=== PATIENT | female | born 1965 | race Caucasian/White ===

== ENCOUNTER 2017-07-03 18:29 | Emergency (ER) | payer OTHER ==
[~2017-07-03] VITALS: Ht 170.2 cm; Wt 79.4 kg
--- OUTSIDE RECORDS SUMMARY | 2017-07-03 18:36 | XMS REPORT ---
Author Author DALE YBARRA Organization [employer] Address Unknown Phone Unavailable Care Team Providers Care Transport Tank Technician Name Role Phone DALE YBARRA CP Unavailable Allergies No Known Allergies Problems Problem Type Condition Code Onset Dates Condition Status Problem Need for prophylactic vaccination and inoculation, Influenza V04.81 Active Problem Essential hypertension, benign 401.1 Active Problem Screening for lipoid disorders V77.91 Active Problem Pain in soft tissues of limb 729.5 Active Problem Other nonspecific abnormal serum enzyme levels 790.5 Active Problem DTAP TEST V06.1 Active Problem Encounter for dental examination and cleaning without abnormal findings Z01.20 Active Problem Other malaise and fatigue 780.79 Active Problem Unspecified vitamin D deficiency 268.9 Active Problem Screening examination for pulmonary tuberculosis V74.1 Active Problem Family history of stroke (cerebrovascular) V17.1 Active Medications Medication Code System Code Instructions Start Date End Date Status Dosage PredniSONE [facility] [address]-79 20 mg Orally Once a day January 13, 2016 January 18, 2016 2 tablets Results No Known Results Summary Purpose eClinicalWorks Submission
--- OUTSIDE RECORDS SUMMARY | 2017-07-03 18:36 | XMS REPORT ---
Author Author MARIA L ALCANTAR [facility] e[employer] Address Unknown Phone Unavailable Care Team Providers Care Manager Of Hospital Name Role Phone MARIA L ALCANTAR CP Unavailable Allergies, Adverse Reactions, Alerts Substance Reaction Event Type N.K.D.A. Info Not Available Non Drug Allergy Problems Problem Type Condition Code Onset Dates Condition Status Problem Screening for lipoid disorders V77.91 Active Problem Unspecified vitamin D deficiency 268.9 Active Problem Essential hypertension, benign 401.1 Active Problem Encounter for dental examination and cleaning without abnormal findings Z01.20 Active Problem Other nonspecific abnormal serum enzyme levels 790.5 Active Problem Encounter for dental examination Z01.20 Active Problem Family history of stroke (cerebrovascular) V17.1 Active Problem Other malaise and fatigue 780.79 Active Problem DTAP TEST V06.1 Active Problem Screening examination for pulmonary tuberculosis V74.1 Active Assessment Encounter for dental examination Z01.20 Active Problem Pain in soft tissues of limb 729.5 Active Problem Need for prophylactic vaccination and inoculation, Influenza V04.81 Active Medications No Known Medications Procedures Procedure Coding System Code Date TOPICAL FLUORIDE VARNISH CPT-4 D1206 Jul 21, 2016 PROPHYLAXIS - ADULT CPT-4 D1110 Jul 21, 2016 Vital Signs Date/Time: Jul 21, 2016 Blood Pressure Diastolic 94 mmHg Blood Pressure Systolic 141 mmHg Results No Known Results Summary Purpose eClinicalWorks Submission
--- OUTSIDE RECORDS SUMMARY | 2017-07-03 18:36 | XMS REPORT ---
Author Author MALLY JOSHI Organization [employer] Address Unknown Phone Unavailable Care Team Providers Care Supervising Floorperson Name Role Phone MALLY JOSHI CP Unavailable Allergies No Known Allergies Problems Problem Type Condition Code Onset Dates Condition Status Problem Need for prophylactic vaccination and inoculation, Influenza V04.81 Active Problem Essential hypertension, benign 401.1 Active Problem Screening for lipoid disorders V77.91 Active Assessment Encounter for dental examination and cleaning without abnormal findings Z01.20 Active Problem Pain in soft tissues [...] history of stroke (cerebrovascular) V17.1 Active Medications No Known Medications Procedures Procedure Coding System Code Date INTRAORL-PERIAPICAL EA ADD FILM CPT-4 D0230 Sep 02, 2015 INTRAORL-PERIAPICAL EA ADD FILM CPT-4 D0230 Sep 02, 2015 INTRAORL-PERIAPICAL 1 FILM 76290 CPT-4 D0220 Sep 02, 2015 PROPHYLAXIS - ADULT CPT-4 D1110 Sep 02, 2015 BITEWINGS - FOUR FILMS CPT-4 D0274 Sep 02, 2015 Results No Known Results Summary Purpose eClinicalWorks Submission
--- OUTSIDE RECORDS SUMMARY | 2017-07-03 18:36 | XMS REPORT ---
Author Author MAURICIO FLEMING [facility] e[employer] Address Unknown Phone Unavailable Care Team Providers Care Crime Scene Photographer Name Role Phone MAURICIO FLEMING CP Unavailable Allergies No Known Allergies Problems Problem Type Condition Code Onset Dates Condition Status Problem Pain in soft tissues of limb 729.5 Active Problem Screening for lipoid disorders V77.91 Active Problem Need for prophylactic vaccination and inoculation, Influenza V04.81 Active Problem DTAP TEST V06.1 Active Problem Screening examination for pulmonary tuberculosis V74.1 Active Problem Other nonspecific abnormal serum enzyme levels 790.5 Active Problem Unspecified vitamin D deficiency 268.9 Active Problem Essential hypertension, benign 401.1 Active Problem Family history of stroke (cerebrovascular) V17.1 Active Problem Other malaise and fatigue 780.79 Active Medications No Known Medications Results No Known Results Summary Purpose eClinicalWorks Submission
--- OUTSIDE RECORDS SUMMARY | 2017-07-03 18:36 | XMS REPORT ---
Author OTF Woodruff [facility] e[employer] Address Unknown Phone Unavailable Care Team Providers Care Conduit Cleaner Name Role Phone OTF PINA CP Unavailable Allergies No Known Allergies Problems Problem Type Condition Code Onset Dates Condition Status Problem Pain in soft tissues of limb 729.5 Active Problem Screening for lipoid disorders V77.91 Active Problem Need for prophylactic vaccination and inoculation, Influenza V04.81 Active Assessment Encounter for immunization Z23 Active Problem DTAP TEST V06.1 Active Problem Screening examination for pulmonary tuberculosis V74.1 Active Problem Other nonspecific abnormal serum enzyme levels 790.5 Active Problem Unspecified vitamin D deficiency 268.9 Active Problem Essential hypertension, benign 401.1 Active Problem Family history of stroke (cerebrovascular) V17.1 Active Problem Other malaise and fatigue 780.79 Active Medications No Known Medications Procedures Procedure Coding System Code Date SINGLE IMMUNIZATION ADMIN CPT-4 76836 Aug 03, 2015 FLUARIX QUAD (3 & UP)-GSK-2014 CPT-4 09392 Aug 03, 2015 Results No Known Results Immunizations Vaccine Administration Date FLUARIX QUAD (3 & UP)-GSK-2014Aug 03, 2015 Summary Purpose eClinicalWorks Submission
--- OUTSIDE RECORDS SUMMARY | 2017-07-03 18:36 | XMS REPORT ---
Author DALE Sales Organization [employer] Address Unknown Phone Unavailable Care Team Providers Care Route Salesman Name Role Phone DALE YBARRA CP Unavailable Allergies, Adverse Reactions, Alerts Substance Reaction Event Type N.K.D.A. Info Not Available Non Drug Allergy Problems Problem Type Condition Code Onset Dates Condition Status Problem Need for prophylactic vaccination and inoculation, Influenza V04.81 Active Problem Essential hypertension, benign 401.1 Active Problem Screening for lipoid disorders V77.91 Active Assessment Poison luz marina L23.7 Active Problem Pain in soft tissues of [...] Instructions Start Date End Date Status Dosage Triamcinolone Acetonide [facility] [id number] 0.1 % Externally Twice a day January 12, 2016 1 application to affected area Procedures Procedure Coding System Code Date KENALOG 40 MG/ML (PER 10 MG) CPT-4 J3301 January 12, 2016 THER/PROPH/DIAG INJ, SC/IM CPT-4 99139 January 12, 2016 Office Visit, Est Pt., Level 3 CPT-4 45193 January 12, 2016 Vital Signs Date/Time: January 12, 2016 Temperature 97.5 F Weight 179.0 lbs Height 66 in BMI 28.89 Index Blood Pressure Diastolic 82 mmHg Blood Pressure Systolic 150 mmHg Cardiac Monitoring Heart Rate 68 bpm Results No Known Results Summary Purpose eClinicalWorks Submission
--- OUTSIDE RECORDS SUMMARY | 2017-07-03 18:36 | XMS REPORT ---
Author Author DALE YBARRA Organization [facility] Address [address] [place] [address] Care Team Providers Care Head Of Marketing Analytics Name Role Phone DALE YBARRA Unavailable PROBLEMS Type Condition ICD9-CM Code WIF70-TE Code Onset Dates Condition Status SNOMED Code Problem Screening for lipoid disorders V77.91 Active 001620216 Problem Unspecified vitamin D deficiency 268.9 Active 42733683 Problem Essential hypertension, benign 401.1 Active 7175693 Assessment Nailbed contusion, finger, initial encounter S60.10XA Jun, Active 79606486 Problem Pain in soft tissues of limb 729.5 Active 68349454 Problem Need for prophylactic vaccination and inoculation, Influenza V04.81 Active 939890449 Problem Encounter for dental examination and cleaning without abnormal findings Z01.20 Active 169740193 Problem Other nonspecific abnormal serum enzyme levels 790.5 Active 198824866 Problem Family history of stroke (cerebrovascular) V17.1 Active 762459317 Problem Other malaise and fatigue 780.79 Active 362703346 Problem DTAP TEST V06.1 Active Problem Screening examination for pulmonary tuberculosis V74.1 Active 693644307 ALLERGIES Substance Reaction Event Type Date Status N.K.D.A. Unknown Non Drug Allergy Jun, Unknown SOCIAL HISTORY No smoking Hx information available PLAN OF CARE VITAL SIGNS Height 66 in 2016-06-10 Weight 178.4 lbs 2016-06-10 Heart Rate 100 bpm 2016-06-10 Respiratory Rate 18 2016-06-10 BMI 28.79 kg/m2 2016-06-10 Blood pressure systolic 120 mmHg 2016-06-10 Blood pressure diastolic 88 mmHg 2016-06-10 MEDICATIONS No Known Medications RESULTS No Results PROCEDURES Procedure Date Ordered Related Diagnosis Body Site Office Visit, Est Pt., Level 2 Jun 10, 2016 IMMUNIZATIONS No Known Immunizations
--- OUTSIDE RECORDS SUMMARY | 2017-07-03 18:37 | XMS REPORT | Continuity of Care Document ---
Author Author [facility] Address Unknown Phone Unavailable Allergies Medications Problems Date Dx Coded Attending Type Code Diagnosis Diagnosed By 01/10/2012 268.9 UNSPECIFIED VITAMIN D DEFICIENCY 01/10/2012 401.1 HYPERTENSION, BENIGN ESSENTIAL 01/10/2012 780.79 FATIGUE 01/10/2012 V17.1 FAMILY HISTORY OF STROKE (CEREBROVASCULAR) 01/10/2012 V77.91 SCREENING FOR LIPOID DISORDERS 01/10/2012 GONZALEZ PERRY MD 268.9 UNSPECIFIED VITAMIN D DEFICIENCY 01/10/2012 GONZALEZ PERRY MD 401.1 ESSENTIAL HYPERTENSION BENIGN 01/10/2012 GONZALEZ PERRY MD 780.79 FATIGUE 01/10/2012 GONZALEZ PERRY MD V17.1 FAMILY HISTORY OF STROKE (CEREBROVASCULAR) 01/10/2012 GONZALEZ PERRY MD V77.91 SCREENING FOR LIPOID DISORDERS 01/10/2012 KATHY HERNDON APRN 268.9 UNSPECIFIED VITAMIN D DEFICIENCY 01/10/2012 KATHY HERNDON APRN 401.1 ESSENTIAL HYPERTENSION BENIGN 01/10/2012 KATHY HERNDON APRN 780.79 FATIGUE 01/10/2012 KATHY HERNDON APRN V17.1 FAMILY HISTORY OF STROKE ( CEREBROVASCULAR) 01/10/2012 KATHY HERNDON APRN V77.91 SCREENING FOR LIPOID DISORDERS 01/10/2012 GONZALEZ PERRY MD 268.9 UNSPECIFIED VITAMIN D DEFICIENCY 01/10/2012 GONZALEZ PERRY MD 401.1 ESSENTIAL HYPERTENSION BENIGN 01/10/2012 GONZALEZ PERRY MD 780.79 FATIGUE 01/10/2012 GONZALEZ PERRY MD V17.1 FAMILY HISTORY OF STROKE (CEREBROVASCULAR) 01/10/2012 GONZALEZ PERRY MD V77.91 SCREENING FOR LIPOID DISORDERS 01/10/2012 KATHY HERNDON APRN 268.9 UNSPECIFIED VITAMIN D DEFICIENCY 01/10/2012 KATRINA DEFECT REPAIRER GLASSWARE, KATHY L 401.1 ESSENTIAL HYPERTENSION BENIGN 01/10/2012 ROSI HERNDON APRNRY L 780.79 FATIGUE 01/10/2012 KATRINA RODRIGUEZ KATHY L V17.1 FAMILY HISTORY OF STROKE ( CEREBROVASCULAR) 01/10/2012 KATRINA BLAIRShaq KATHY L V77.91 SCREENING FOR LIPOID DISORDERS 01/10/2012 KATRINA BLAIRShaq KATHY L 268.9 UNSPECIFIED VITAMIN D DEFICIENCY 01/10/2012 KATRINA BLAIRShaq KATHY L 401.1 ESSENTIAL HYPERTENSION BENIGN 01/10/2012 KATRINA RODRIGUEZ KAHTY L 780.79 FATIGUE 01/10/2012 KATRINA RODRIGUEZ KATHY L V17.1 FAMILY HISTORY OF STROKE ( CEREBROVASCULAR) 01/10/2012 KATRINA BLAIRShaq KATHY L V77.91 SCREENING FOR LIPOID DISORDERS 01/10/2012 GONZALEZ PERRY MD 268.9 UNSPECIFIED VITAMIN D DEFICIENCY 01/10/2012 GONZALEZ PERRY MD A 401.1 ESSENTIAL HYPERTENSION BENIGN 01/10/2012 GONZALEZ PERRY MD A 780.79 FATIGUE 01/10/2012 GONZALEZ PERRY MD A V17.1 FAMILY HISTORY OF STROKE (CEREBROVASCULAR) 01/10/2012 GONZALEZ PERRY MD V77.91 SCREENING FOR LIPOID DISORDERS 01/10/2012 PINA DO OTF K 268.9 UNSPECIFIED VITAMIN D DEFICIENCY 01/10/2012 PINA DO, OTF K 401.1 ESSENTIAL HYPERTENSION BENIGN 01/10/2012 PINA DO, OTF K 780.79 FATIGUE 01/10/2012 PINA DO, OTF K V17.1 FAMILY HISTORY OF STROKE (CEREBROVASCULAR) 01/10/2012 YOVANI ARCOS OTF K V77.91 SCREENING FOR LIPOID DISORDERS 01/10/2012 JAMILA FLEMING APRNIA R 268.9 UNSPECIFIED VITAMIN D DEFICIENCY 01/10/2012 BERNADETTE RODRIGUEZ MAURICIO R 401.1 ESSENTIAL HYPERTENSION BENIGN 01/10/2012 BERNADETTE RODRIGUEZ MAURICIO R 780.79 FATIGUE 01/10/2012 GABI FLEMING APRNRICIA R V17.1 FAMILY HISTORY OF STROKE ( CEREBROVASCULAR) 01/10/2012 JAMILA FLEMING APRNIA R V77.91 SCREENING FOR LIPOID DISORDERS 01/10/2012 PINA DO OTF K 268.9 UNSPECIFIED VITAMIN D DEFICIENCY 01/10/2012 YOVANI ARCOS OTF K 401.1 ESSENTIAL HYPERTENSION BENIGN 01/10/2012 OTF PINA DO K 780.79 FATIGUE 01/10/2012 OTF PINA DO K V17.1 FAMILY HISTORY OF STROKE (CEREBROVASCULAR) 01/10/2012 OTF PINA DO K V77.91 SCREENING FOR LIPOID DISORDERS 01/10/2012 268.9 UNSPECIFIED VITAMIN D DEFICIENCY 01/10/2012 401.1 HYPERTENSION, BENIGN ESSENTIAL 01/10/2012 780.79 FATIGUE 01/10/2012 V17.1 FAMILY HISTORY OF STROKE (CEREBROVASCULAR) 01/10/2012 V77.91 SCREENING FOR LIPOID DISORDERS 05/03/2012 V06.1 TDAP DX 05/03/2012 GONZALEZ PERRY MD V06.1 TDAP DX 05/03/2012 AKTHY HERNDON APRN V06.1 TDAP DX 05/03/2012 GONZALEZ PERRY MD V06.1 TDAP DX 05/03/2012 KATHY HERNDON APRN V06.1 TDAP DX 05/03/2012 KATHY HERNDON APRN V06.1 TDAP DX 05/03/2012 GONZALEZ PERRY MD V06.1 TDAP DX 05/03/2012 OTF PINA DO V06.1 TDAP DX 05/03/2012 MAURICIO FLEMING APRN V06.1 TDAP DX 05/03/2012 YOVANI ARCOSOTF K V06.1 TDAP DX 05/03/2012 V06.1 TDAP DX 07/11/2012 V04.81 FLU DX (3 YRS AND ABOVE, IM) 07/11/2012 GONZALEZ PERRY MD V04.81 FLU DX (3 YRS AND ABOVE, IM) 07/11/2012 KATHY HERNDON APRN V04.81 FLU DX (3 YRS AND ABOVE, IM) 07/11/2012 GONZALEZ PERRY MD V04.81 FLU DX (3 YRS AND ABOVE, IM) 07/11/2012 KATHY HERNDON APRN V04.81 FLU DX (3 YRS AND ABOVE, IM) 07/11/2012 KATHY HERNDON APRN V04.81 FLU DX (3 YRS AND ABOVE, IM) 07/11/2012 GONZALEZ PERRY MD V04.81 FLU DX (3 YRS AND ABOVE, IM) 07/11/2012 OTF PINA DO V04.81 FLU DX (3 YRS AND ABOVE, IM) 07/11/2012 MAURICIO FLEMING APRN V04.81 FLU DX (3 YRS AND ABOVE, IM) 07/11/2012 PINA DOSEPIDEHA K V04.81 FLU DX (3 YRS AND ABOVE, IM) 07/11/2012 V04.81 FLU DX (3 YRS AND ABOVE, IM) 08/01/2013 KATHY HERNDON APRN 790.5 OTHER NONSPECIFIC ABNORMAL SERUM ENZYME LEVELS 08/01/2013 GONZALEZ PERRY MD 790.5 OTHER NONSPECIFIC ABNORMAL SERUM ENZYME LEVELS 08/01/2013 OTF PINA DO 790.5 OTHER NONSPECIFIC ABNORMAL SERUM ENZYME LEVELS 08/01/2013 MAURICIO FLEMING APRN 790.5 OTHER NONSPECIFIC ABNORMAL SERUM ENZYME LEVELS 08/01/2013 OTF PINA DO 790.5 OTHER NONSPECIFIC ABNORMAL SERUM ENZYME LEVELS 11/03/2013 GONZALEZ PERRY MD V74.1 TB SCREENING 11/03/2013 OTF PINA DO V74.1 TB SCREENING 11/03/2013 AMURICIO FLEMING APRN V74.1 TB SCREENING 11/03/2013 OTF PINA DO V74.1 TB SCREENING 08/20/2014 MAURICIO FLEMING APRN 729.5 PAIN IN LIMB 08/20/2014 OTF PINA DO 729.5 PAIN IN LIMB 01/01/2015 OTF PINA DO 388.70 OTALGIA 01/01/2015 OTF PINA DO 786.2 COUGH Procedures Code [place] [address] CMP 10/31/2012 70959 CBC 10/31/2012 33775 ROUTINE VENIPUNCTURE 07/23/2013 30518 CMP 07/23/2013 61301 LIPID PANEL 07/23 46280 TSH 07/23/2013 68056 CBC 07/23/2013 17079 ROUTINE VENIPUNCTURE 07/31/2013 77827 CMP 07/31/2013 92469 ROUTINE VENIPUNCTURE 08/01/2013 32310 CRP 08/01/2013 34075 ESR/SED RATE 10/2012 52826 HEP C ANTIBODY (RML) 08/02/2013 05281 RA FACTOR 2012 ANAANA CLAUDIO ANALYZER (SCREEN) 08/04/2013 2465581 TITER CLAUDIO (RESULT ONLY) 08/04/2013 98925 TB TEST INTRADERMAL 11/03/2013 19618 XRAY FOOT RIGHT 2 VIEWS 08/20/2014 PODIATRY LANEY OLSEN 08/20/2014 93712 THERAPUTIC INJ SQ/IM 01/01/2015 J1040 DEPO MEDROL 80 MG INJ 01/01/2015 J1100 DEXAMETHASONE SODIUM PHOS, 1 MG 01/01/2015 Results Encounters ACCT No. Visit Date/Time Discharge Status Pt. Type Provider Facility Loc./Unit Complaint [id number] 01/01/2015 13:07:00 01/01/2015 23: 59:59 CLS Outpatient OTF PINA DO [id number] 08/20/2014 15:44:00 08/20/2014 23: 59:59 CLS Outpatient MAURICIO FLEMING APRN [id number] 08/12/2014 14:27:00 08/12/2014 23: 59:59 CLS Outpatient OTF PINA DO [id number] 11/03/2013 10:28:00 11/03/2013 23: 59:59 CLS Outpatient GONZALEZ PERRY MD [id number] 08/01/2013 13:18:00 08/01/2013 23: 59:59 CLS Outpatient KATHY HERNDON APRN [id number] 07/31/2013 11:13:00 07/31/2013 23: 59:59 CLS Outpatient KATHY HERNDON APRN [id number] 07/23/2013 09:43:00 07/23/2013 23: 59:59 CLS Outpatient GONZALEZ PERRY MD [id number] 06/27/2013 14:51:00 06/27/2013 23: 59:59 CLS Outpatient KATHY HERNDON APRN [id number] 12/11/2012 10:59:00 12/11/2012 23: 59:59 CLS Outpatient GONZALEZ PERRY MD [id number] 07/11/2012 14:00:00 07/11/2012 23: 59:59 CLS Outpatient [id number] 07/11/2012 14:00:00 07/11/2012 23: 59:59 CLS Outpatient
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
[2017-07-03] MEDS ORDERED: NS 100 ML (IVPB) BAG IV ONE (20:00)
[2017-07-03] MEDS ORDERED: IOHEXOL 350 MG/ML 100 ML (OMNIPAQUE 350) VIAL IV ONE (20:00)
[2017-07-03 20:06] LABS: BASOPHILS % (AUTO) 0 % (0-10); EOSINOPHILS # (AUTO) 0.2 10^3/uL (0.0-0.3); EOSINOPHILS % (AUTO) 2 % (0-10); LYMPHOCYTES % (AUTO) 18 % (12-44); MEAN CORPUSCULAR HEMOGLOBIN 30 PG (25-34); MEAN CORPUSCULAR HGB CONC 33 G/DL (32-36); MEAN CORPUSCULAR VOLUME 89 FL (80-99); MEAN PLATELET VOLUME 9.9 FL (7.4-10.4); MONOCYTES % (AUTO) 9 % (0-12); NEUTROPHILS # (AUTO) 7.8 X 10^3 (1.8-7.8); NEUTROPHILS % (AUTO) 71 % (42-75); PLATELET COUNT 285 10^3/uL (130-400); RED BLOOD COUNT 4.41 10^6/uL (4.35-5.85); RED CELL DISTRIBUTION WIDTH 12.8 % (10.0-14.5); WHITE BLOOD COUNT 10.9 10^3/uL (4.3-11.0)
[2017-07-03 20:11] LABS: ALANINE AMINOTRANSFERASE 76 U/L (0-55); ALBUMIN 4.3 GM/DL (3.2-4.5); ANION GAP 9 MMOL/L (5-14); ASPARTATE AMINO TRANSFERASE 52 U/L (5-34); BILIRUBIN,TOTAL 0.4 MG/DL (0.1-1.0); BLOOD UREA NITROGEN 22 MG/DL (7-18); BUN/CREATININE RATIO 28; CARBON DIOXIDE 26 MMOL/L (21-32); CHLORIDE 107 MMOL/L (98-107); CREATININE SERUM 0.78 MG/DL (0.60-1.30); GFR ESTIMATED > 60; GLUCOSE 104 MG/DL (70-105); POTASSIUM 3.9 MMOL/L (3.6-5.0); SODIUM 142 MMOL/L (135-145); TOTAL PROTEIN 7.9 GM/DL (6.4-8.2)
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
[2017-07-03 21:15] VITALS: BP 194/101
== END 2017-07-03 21:15 | disposition home or self-care (01) ==
LOC: ER 18:32
DX: Y92.488 Other paved roadways as the place of occurrence of the external cause; V49.40XA Driver injured in collision with unspecified motor vehicles in traffic accident, initial encounter; S80.12XA Contusion of left lower leg, initial encounter; S10.93XA Contusion of unspecified part of neck, initial encounter
CPT/HCPCS: 36415; 70450; 71260; 72125; 73590; 74177; 80053; 85025; 99283